=== PATIENT | female | born 1960 | race Caucasian/White ===

== ENCOUNTER 2023-11-20 10:36 | Emergency (ER) | payer OTHER, SELFPAY ==
[2023-11-20 10:53] VITALS: BP 132/84
[2023-11-20 11:09] LABS: % Basophils 1.5 % (0-2); % Eosinophils 9.2 % (0-6); % Immature Granulocytes 0.2 % (0-0.5); % Lymphocytes 36.2 % (20.5-51.1); % Monocytes 7.6 % (1.7-9.3); % Neutrophils 45.3 % (42.2-75.2); Absolute Basophils 0.1 10^3/uL (0-0.2); Absolute Eosinophils 0.6 10^3/uL (0-0.7); Absolute Lymphocytes 2.4 10^3/uL (1.2-3.4); Absolute Monocytes 0.5 10^3/uL (0.1-0.6); Hematocrit 37.1 % (37.0-47.0); Hemoglobin 12.6 g/dL (12.0-16.0); Mean Corpuscular Hgb 30.4 pg (27.0-31.0); Mean Corpuscular Volume 89.4 fL (81.0-99.0); Mean Platelet Volume 10.2 fL (7.4-10.4); Nucleated Red Blood Cells % 0 %; Platelet Count 305 10^3/uL (130-400); Red Blood Cell Count 4.15 10^6/uL (4.20-5.40); Red Cell Dist. Width 13.1 % (11.5-14.5); White Blood Cell Count 6.6 10^3/uL (4.8-10.8)
[2023-11-20 11:22] LABS: ALT (SGPT) 21 U/L (0-35); AST (SGOT) 25 U/L (14-36); Albumin 4.5 g/dl (3.5-5.0); Alkaline Phosphatase 76 U/L (38-126); Blood Urea Nitrogen 12 mg/dl (7-17); Calcium 9.6 mg/dl (8.4-10.2); Carbon Dioxide 25 mmol/L (22-30); Chloride 106 mmol/L (98-107); Glucose 98 mg/dl (70-99); Potassium 3.9 mmol/L (3.5-5.1); Sodium 137 mmol/L (135-145); Total Bilirubin 0.4 mg/dl (0.2-1.3); Total Protein 6.9 g/dl (6.3-8.2); eGFR > 60.00
[2023-11-20 11:38] VITALS: BMI 25.0
--- NOTE | 2023-11-20 12:02 | ED.GENMED ---
History of Present Illness
General
Chief Complaint: Abdominal Symptoms
Time Seen by Provider: 11/20/23 11:33
Travel History
Have you had any contact with someone who has COVID-19?: No
Do you have any symptoms of coronavirus? Fever > 100 degrees, chills, cough, shortness of breath, sore throat, loss of taste or smell, muscle aches, or headache?: No
History of Present Illness
History of Present Illness:
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 She is concerned that today she noticed a large amount of
blood in the stool. She has chronic diarrhea but the symptoms worsened 2 weeks ago. She does note that 1 month ago she was treated for a dental infection with clindamycin and did not receive prophylactic vancomycin despite having a history of C.
difficile colitis. She currently denies any significant abdominal pain
Past History
Past History
ED Past Medical History: Asthma and Other (diverticulosis)
ED Past Surgical History: Appendectomy, Cholecystectomy and Gynecological
Social History
Tobacco: Non-smoker
Alcohol: None
Personal: Single
Living: with family
Employment: Employed
Review of Systems
Review of Systems
Allergies reviewed?: Yes
All Other Systems: ROS reviewed and negative except as documented in HPI and ROS
Phy Exam
Physical Exam
Physical Exam:
GEN: Well appearing, NAD, WDWN
Eyes: PERRLA, EOMs intact, no scleral icterus
HENT: NCAT, oral mucosa moist
Lungs: CTAB, no wheezes, rales, rhonchi, normal chest wall excursion
Cardiac: RRR, no M/R/G, no peripheral edema. Radial pulses 2+ bilat
Abdomen: S, NT, ND, NABS, no masses or hepatosplenomegaly
Neuro: AO x 3
MSK: No gross deformity or ecchymosis. No edema. No digital clubbing
Skin: No rashes, petechiae. Normal color, no pallor or jaundice.
Psych: Calm, cooperative, proper hygiene
Course
Orders/Labs/Results
Orders:
Orders
11/20/23 11:00
CMP [Comprehensive Metabolic Panel] Urgent
Complete Blood Count/With Diff Urgent
11/20/23 12:01
0.9% Sodium Chloride 1000 ml [Nss] 1,000 ml IV BOLUS
11/20/23 13:52
C DIFF [C difficile Antigen & Toxins] Urgent
CATHERINE Source: Feces/Stool
Specimen Description:
Date Specimen was Collected: 11/20/23
Time Specimen was Collected: 12:33
Stool Culture Urgent
CATHERINE Source: Feces/Stool
Specimen Description:
Date Specimen was Collected: 11/20/23
Time Specimen was Collected: 12:33
Stool For WBC Urgent
CATHERINE Source: Feces/Stool
Specimen Description:
Date Specimen was Collected: 11/20/23
Time Specimen was Collected: 12:33
11/20/23 14:00
0.9% Sodium Chloride 1000 ml [Nss] 1,000 ml IV BOLUS
Abnormal Lab Results
11/20/23
11:00
RBC 4.15 L 10^6/uL
(4.20-5.40)
Eosinophils % 9.2 H %
(0-6)
11/20/23 11:00
11/20/23 11:00
Vital Signs
Initial and Last Documented VS:
Initial Vital Signs
Temp Pulse Resp BP Pulse Ox
98.0 F 68 18 132/84 100
11/20/23 10:53 11/20/23 10:53 11/20/23 10:53 11/20/23 10:53 11/20/23 10:53
Last Documented Vital Signs
Temp Pulse Resp BP Pulse Ox
98.0 F 75 18 134/75 99
11/20/23 10:53 11/20/23 13:31 11/20/23 13:31 11/20/23 13:31 11/20/23 13:31
MDM/Problems Addressed
MDM/Problems Addressed:
Patient with benign abdominal exam. She does have large-volume diarrhea and was given IV fluid resuscitation. No blood noted in specimen provided emergency department. She is negative for C. difficile. I did discuss with gastroenterology, they
recommend withholding any antibiotics or steroids at this time, will prescribe Lomotil symptomatically, she has a GI follow-up in 3 days. I strongly encouraged patient to return with any abdominal pain or fevers, no imaging necessary in the
emergency department today due to benign abdominal exam
*Critical Care Note
Total Time (30-74mins, 75-104mins- exclusive of procedures): Not Applicable
ED Attending Note
-
Portions of this chart may have been created with voice recognition software.� Occasional wrong word or��sound alike� substitutions may have occurred due to the inherent limitations of voice recognition software.
Discharge Plan
Departure
Patient Disposition: Home (Routine Discharge)
Date of Disposition: 11/20/23
Time of Disposition: 15:26
Patient with high blood pressure during this ER visit?: No
Discharge Problem:
Microscopic colitis
Instructions: Diarrhea in adolescents and adults
Prescriptions:
New
diphenoxylate-atropine [Lomotil] 2.5-0.025 mg tablet
1 tab PO Q8H PRN (Reason: diarrhea) Qty: 10 0RF
No Action
sertraline 50 MG tablet
100 mg PO HS
alprazolam 0.25 MG tablet
0.25 mg PO TIDPRN PRN (Reason: anxiety)
Patient Comments:
acetaminophen [Tylenol] 325 mg Tablet
650 mg PO Q4HPRN PRN (Reason: mild pain)
pantoprazole [Protonix] 40 mg Tablet,Delayed Release (/Ec)
40 mg PO Q72H
Fiber Gummies 2 gram Tablet,Chewable
4 g PO DAILY
Referrals:
Kristopher Ortega MD [Active] -
Interventions
Interventions:
*Risk Screen - Suicide Last Done: 11/20/23 11:38
*General Assessment Last Done: 11/20/23 11:38
*Neglect/Abuse Screening Last Done: 11/20/23 11:38
ED- Fall Risk Assessment Last Done: 11/20/23 15:50
*ED COVID-19 Vaccine History Last Done: 11/20/23 15:50
*Nursing Disposition Last Done: 11/20/23 15:50
DA-Pobwhk-Giprbxljoo Assessment Last Done: 11/20/23 11:38
Discharge Date and Time
Discharge Date/Time: 11/20/23 15:51
Print Language: UGANDAN
[2023-11-20] MEDS: NSS 1000 IV ×2 (12:34→14:46)
[2023-11-20 13:31] VITALS: BP 134/75
== END 2023-11-20 15:51 | disposition home or self-care (01) ==
LOC: EMR 10:36
PROVIDERS: Emergency Medicine; EMERGENCY PHYSICIAN Emergency Medicine; FAMILY PHYSICIAN Family Medicine
DX: K52.89 Other specified noninfective gastroenteritis and colitis (principal)
CPT/HCPCS: 99284; 96360; 96361; 80053; 85025; 87045; 87046; 87324; 87427; 87449; 89055

== ENCOUNTER → 2024-06-06 14:46 | Outpatient (REF) | payer OTHER, SELFPAY | LOC: WDC 14:46 | PROVIDERS: ATTENDING PHYSICIAN Family Medicine | DX: Z12.31 Encounter for screening mammogram for malignant neoplasm of breast (principal) | CPT/HCPCS: 77063; 77067 ==

== ENCOUNTER 2024-09-26 10:29 | Emergency (ER) | payer OTHER, SELFPAY ==
[2024-09-26 10:40] VITALS: BP 104/82
[2024-09-26 12:27] VITALS: BMI 25.5
[2024-09-26 12:28] VITALS: BP 134/86
[2024-09-26 12:29] VITALS: BP 134/86
[2024-09-26 12:41] LABS: % Basophils 0.7 % (0-2); % Immature Granulocytes 0.2 % (0-0.5); % Lymphocytes 32.9 % (20.5-51.1); % Monocytes 10.8 % (1.7-9.3); % Neutrophils 53.4 % (42.2-75.2); Absolute Eosinophils 0.1 10^3/uL (0-0.7); Absolute Lymphocytes 1.9 10^3/uL (1.2-3.4); Absolute Monocytes 0.6 10^3/uL (0.1-0.6); Hematocrit 42.9 % (37.0-47.0); Hemoglobin 14.3 g/dL (12.0-16.0); Mean Corp Hgb Conc. 33.3 g/dL (33.0-37.0); Mean Corpuscular Hgb 28.4 pg (27.0-31.0); Mean Corpuscular Volume 85.3 fL (81.0-99.0); Mean Platelet Volume 10.3 fL (7.4-10.4); Nucleated Red Blood Cells % 0 %; Platelet Count 291 10^3/uL (130-400); Red Blood Cell Count 5.03 10^6/uL (4.20-5.40); Red Cell Dist. Width 14.4 % (11.5-14.5); White Blood Cell Count 5.6 10^3/uL (4.8-10.8)
--- NOTE | 2024-09-26 12:41 | ED.GENMED ---
History of Present Illness
General
Chief Complaint: Abdominal Symptoms
Source: patient
Time Seen by Provider: 09/26/24 12:36
History of Present Illness
History of Present Illness:
This patient is a 64-year-old female who says that she was diagnosed with microscopic colitis last year after having repeated episodes of diarrhea. She was given a medication and after taking his medicine her symptoms went away. She says she was
'great' throughout the summer. Then, around she started to again develop episodes of diarrhea here and there. However, in the last few days to months she notes more persistent episodes of diarrhea described as 'full water' without
bright red blood. She called her doctor and cannot be seen for some time. She did submit stool samples on Thursday but is unaware of the results. Her symptoms got particularly worse yesterday and today which prompted her visit here. She denies
nausea, vomiting, fever, chills, chest pain, shortness of breath, loss of appetite, abdominal pain, or other complaints.
Past History
Past History
ED Past Medical History: Asthma and Other (diverticulosis)
ED Past Surgical History: Appendectomy, Cholecystectomy and Gynecological
Social History
Tobacco: Non-smoker
Alcohol: None
Personal: Single
Living: with family
Employment: Employed
Phy Exam
Physical Exam
Physical Exam:
GENERAL: Alert , in no apparent distress
EYE: pupils equal and reactive
NECK: Supple, no significant adenopathy.
ENT: o/p clr, mm very slightly dry
CARDIAC: Regular rate and rhythm .
LUNGS: Clear breath sounds bilaterally, no acute respiratory distress, no wheezes/rales/rhonchi
ABDOMEN: Soft, without focal tenderness, no r/g, no cvat
NEUROLOGICAL: Alert and oriented, no focal neuro deficits
SKIN: Warm and dry, skin intact.
MUSCULOSKELETAL: No edema, well perfused.
PSYCH: Normal and appropriate interaction.
Course
Orders/Labs/Results
Orders:
Orders
09/26/24 12:25
IV Insert/Care/Rem.- Treatment PRN
09/26/24 12:28
Complete Blood Count/With Diff Urgent
Comprehensive Metabolic Panel Urgent
Lipase Urgent
TSH Urgent
Comment: ADD ON
09/26/24 12:38
STOOL [C difficile Antigen & Toxins] Urgent
CATHERINE Source: Feces/Stool
Specimen Description:
Date Specimen was Collected: 09/26/24
Time Specimen was Collected: 12:53
Stool Culture Urgent
CATHERINE Source: Feces/Stool
Specimen Description:
Date Specimen was Collected: 09/26/24
Time Specimen was Collected: 12:53
Stool For WBC Urgent
CATHERINE Source: Feces/Stool
Specimen Description:
Date Specimen was Collected: 09/26/24
Time Specimen was Collected: 12:53
09/26/24 12:43
0.9% Sodium Chloride 500 ml [Nss] 500 ml IV BOLUS
09/26/24 12:48
Add On- LAB Urgent
Tests Added?: TSH
09/26/24 15:19
Calprotectin, Fecal [S] Urgent
Ova & Parasites Giardia/Crypto AG [Giardia/Cryptosporidium Ag] Urgent
CATHERINE Source: Feces/Stool
Specimen Description:
Abnormal Lab Results
09/26/24
12:28
Monocytes % 10.8 H %
(1.7-9.3)
Glucose 102 H mg/dl
(70-99)
09/26/24 12:28
09/26/24 12:28
Vital Signs
Initial and Last Documented VS:
Initial Vital Signs
Temp Pulse Resp BP Pulse Ox
98.5 F 89 16 104/82 98
09/26/24 10:40 09/26/24 10:40 09/26/24 10:40 09/26/24 10:40 09/26/24 10:40
Last Documented Vital Signs
Temp Pulse Resp BP Pulse Ox
98.5 F 69 18 134/86 95
09/26/24 10:40 09/26/24 12:29 09/26/24 12:29 09/26/24 12:29 09/26/24 12:45
Update Note
Update Note:
Patient presents to the Emergency Department with __diarrhea
Number and Complexity of Problems Addressed at the Encounter
� Chronic conditions affecting care:
� Acute Exacerbation and/or Progression of Chronic Illness:
� Differential Diagnosis includes: But not limited to hyperthyroidism, electrolyte disorder, microscopic colitis, C. difficile, etc. etc.
Amount and/or Complexity of Data to be Reviewed and Analyzed
� I performed an independent evaluation of and my interpretation is:
EKG:
CT:
Xrays:
Laboratory Studies: Generally unremarkable here
Other:
� Review of other/old records reveals:
� Clinical information was obtained by an independent historian:
� Prescriptions/Medications Considered but not given:
� Further testing considered but not performed:
Risk of Complications and/or Morbidity or Mortality of Patient Management
� Social determinants of health affecting care:
� Discussion with other providers (PCP, Hospitalists, Consultants, etc):
� Escalation of care including admission/observation vs risk of discharge considered: Of note, patient denies recent sick exposures or antibiotics. Had set up in bathroom but she is not yet able to provide a sample.
3:16 PM Long discussion with patient regarding her unremarkable workup thus far. Of note, no abdominal tenderness to palpation, toxicity, fever, etc. to suggest abdominal CAT scan as part of her workup. Case discussed with GI, Dr. Mariano, who in turn
discussed with Dr. Barrera� Recommend continue her medication budesonide, and he has sent her for stool studies, will try to get her seen in the office soon.
3:18 PM to since patient being discharged she was then able to provide a stool sample, will send for analysis.
ED Attending Note
-
Portions of this chart may have been created with voice recognition software.� Occasional wrong word or��sound alike� substitutions may have occurred due to the inherent limitations of voice recognition software.
Discharge Plan
Departure
Patient Disposition: Home (Routine Discharge)
Date of Disposition: 09/26/24
Time of Disposition: 15:17
Patient with high blood pressure during this ER visit?: Yes
Condition: Good
Discharge Problem:
Diarrhea
Instructions: Diarrhea in teens and adults, BLOOD PRESSURE
Prescriptions:
No Action
sertraline 50 MG tablet
100 mg PO HS
alprazolam 0.25 MG tablet
0.25 mg PO TIDPRN PRN (Reason: anxiety)
Patient Comments:
acetaminophen [Tylenol] 325 mg Tablet
650 mg PO Q4HPRN PRN (Reason: mild pain)
pantoprazole [Protonix] 40 mg Tablet,Delayed Release (Dr/Ec)
40 mg PO Q72H
Fiber Gummies 2 gram Tablet,Chewable
4 g PO DAILY
diphenoxylate-atropine [Lomotil] 2.5-0.025 mg tablet
1 tab PO Q8H PRN (Reason: diarrhea) Qty: 10 0RF
Referrals:
Kristopher Ortega MD [Active] - Next open appointment
Liv Haddad DO [Family Provider] -
Activity Restrictions/Additional Instructions:
PLEASE TAKE MEDICATIONS PRESCRIBED. PLEASE PROCEED WITH SUBMITTING A STOOL SAMPLE WITH YOUR GI DOCTOR. IF YOU DEVELOP BLOOD IN YOUR STOOL, FEVER, ABDOMINAL PAIN, VOMITING, OR OTHER WORRISOME SIGNS, PLEASE RETURN TO THE ER IMMEDIATELY.
Interventions
Interventions:
*Risk Screen - Suicide Last Done: 09/26/24 10:40
*General Assessment Last Done: 09/26/24 10:40
*Neglect/Abuse Screening Last Done: 09/26/24 10:40
ED- Fall Risk Assessment Last Done: 09/26/24 12:25
*ED COVID-19 Vaccine History Last Done: 09/26/24 12:28
[facility]-Xhkwwp-Muljefckoh Assessment Last Done: 09/26/24 12:25
Discharge Date and Time
Print Language: UPPER SORBIAN
[2024-09-26] MEDS: NSS 500 IV (12:50)
[2024-09-26 13:02] LABS: ALT (SGPT) 21 U/L (0-35); AST (SGOT) 26 U/L (14-36); Albumin 4.2 g/dl (3.5-5.0); Alkaline Phosphatase 84 U/L (38-126); Blood Urea Nitrogen 7 mg/dl (7-17); Calcium 9.2 mg/dl (8.4-10.2); Carbon Dioxide 25 mmol/L (22-30); Chloride 105 mmol/L (98-107); Estimated Creatinine Clearance 57 ml/min; Glucose 102 mg/dl (70-99); Lipase 81 U/L (23-300); Sodium 137 mmol/L (135-145); Total Bilirubin 0.7 mg/dl (0.2-1.3); Total Protein 6.7 g/dl (6.3-8.2); eGFR > 60.00
[2024-09-26 13:57] LABS: TSH 0.92 uIU/ml (0.47-4.68)
== END 2024-09-26 15:58 | disposition home or self-care (01) ==
LOC: EMR 10:29
PROVIDERS: EMERGENCY PHYSICIAN Emergency Medicine; FAMILY PHYSICIAN Family Medicine
DX: R19.7 Diarrhea, unspecified (principal); J45.909 Unspecified asthma, uncomplicated; Z90.49 Acquired absence of other specified parts of digestive tract
CPT/HCPCS: 99283; 80053; 83690; 83993; 84443; 85025; 87045; 87046; 87077; 87324; 87328; 87329; 87427; 87449; 89055